=== PATIENT | female | born 1965 | race Two or more races ===

== ENCOUNTER 2023-03-11 17:50 | Emergency (ER) | payer SELFPAY ==
[2023-03-11 17:53] VITALS: BP 161/98; PULSE 84; RESP 20; TEMP 36.7; O2SAT 96; BMI 32.2
--- NOTE | 2023-03-11 18:02 | XR_ITS ---
The [address] [address] Patient Name: BETTY VILLAR MRN: [id number] date: 1965 Sex: F Assigned Patient Location: ER Current Patient Location: ER Accession/Order Number: [id number] Exam Date: 03/11/2023 18:12 Report Date: 03/11/2023 18:31 At the request of: JUAN CARLOS LEWIS Procedure: XR chest 1V EXAM: XR chest 1V HISTORY: cough COMPARISON: None. TECHNIQUE: Chest X-ray AP, 1 view FINDINGS: Support devices: None. Lungs/pleura: No consolidation, effusion, or pneumothorax. Heart and mediastinum: Normal contours. Bones: No acute abnormality identified. XR/XR chest 1V Impression: No radiographic evidence of acute cardiopulmonary process. Electronically authenticated by: CHAS MALIK Date: 03/11/2023 18:31
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
== END 2023-03-11 18:57 | disposition home or self-care (01) ==
PROVIDERS: Emergency Provider Emergency Medicine
DX: J32.9 Chronic sinusitis, unspecified (principal)
CPT/HCPCS: 71045; 99283

== ENCOUNTER 2024-02-19 10:30 | Emergency (ER) | payer BC, SELFPAY ==
[2024-02-19 10:41] VITALS: BP 157/99; PULSE 99; TEMP 36.8; O2SAT 98; BMI 32.2
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
--- OUTSIDE RECORDS SUMMARY | 2024-02-19 10:44 | XMS_ITS | CCD ---
Author Organization [facility] Care Team Providers Care Patient Relations Representative Name Role Phone ISRA LINDA Consulting Unavailable ALEXEIISRA Admitting Unavailable ALEXEIISRA Attending Unavailable REQUEST, NONE LISTED Primary Care Unavailable Allergies Allergy Classification Reported Allergen(s) Allergy Type Date of Onset Reaction(s) Facility (1 source) Acetaminophen / HYDROcodone Drug Allergy 12-03-2019 The [facility] Repository Problems Problem Classification Problem Date Documented Da te Episodic/Chronic Immunizations and screening for infectious disease (3 sources) Contact with and (suspected) exposure to other viral communicable diseases; Translations: [CONTCT EXPS OTH VIRL COMMUNICABL DZ] Onset: 12-03-2019 Episodic Unclassified (1 source) COVID-19; Translations: [COVID-19] Onset: 12-12-2019 Results Test Name Value Interpretation Reference Range Facil ity COVID-19 PCRon 12-08-2019 SARS-CoV-2, MERVAT Detected Abnormal Not Detected The [facility] Comment on above: Result Comment: This test was developed and its performance characteristics determined by [employer]. This test has not been FDA cleared or approved. This test has been authorized by FDA under an Emergency Use Authorization (EUA). This test is only authorized for the duration of time the declaration that circumstances exist justifying the authorization of the emergency use of in vitro diagnostic tests for detection of SARS-CoV-2 virus and/or diagnosis of COVID-19 infection under section 564(b)(1) of the Act, 21 U.S.C. 360bbb-3(b)(1), unless the authorization is terminated or revoked sooner. When diagnostic testing is negative, the possibility of a false negative result should be considered in the context of a patient's recent exposures and the presence of clinical signs and symptoms consistent with COVID-19. An individual without symptoms of COVID-19 and who is not shedding SARS-CoV-2 virus would expect to have a negative (not detected) result in this assay. Performed By: #### C VDPCR #### [facility] [address], [place] [address] Morris Strickland Encounters Encounter Date Encounter Type Care Provider Facility Start: 12-03-2019 End: 12-03-2019 Patient encounter procedure ISRA LINDA Facility:[facility]1 Payers Date Payer Category Payer Unknown [id number] 1960 Private Health Insurance [id number] Summary Purpose Family History No Family History Records Found Advance Directives No Advanced Directives Records Found Additional Source Comments INFORMATION SOURCE (unrecogn ized section and content) DATE CREATED AUTHOR 12/12/[address] [facility] FOR RECORDS PERTAINING TO PATIENTS WHO ARE OR HAVE BEEN ENROLLED IN A CHEMICAL DEPENDENCY/SUBSTANCEABUSE PROGRAM, SOME INFORMATION MAY BE OMITTED. This clinical summary was aggregated from multiple sources. Caution should be exercised in using it in the provision of clinical care. This summary normalizes information from multiple sources, and as a consequence, information in this document may materially change the coding, format and clinical context of patient data. In addition, data may be omitted in some cases. CLINICAL DECISIONS SHOULD BE BASED ON THE PRIMARY CLINICAL RECORDS. [employer] provides no warranty or guarantee of the accuracy or completeness of information in this document.
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
[2024-02-19 12:06] VITALS: BP 136/89; PULSE 78; O2SAT 99
== END 2024-02-19 12:06 | disposition home or self-care (01) ==
PROVIDERS: Emergency Provider Emergency Medicine
DX: S00.93XA Contusion of unspecified part of head, initial encounter (principal); Y04.2XXA Assault by strike against or bumped into by another person, initial encounter
CPT/HCPCS: 70450; 99284

== ENCOUNTER 2024-03-24 06:48 | Emergency (ER) | payer BC, SELFPAY ==
[2024-03-24] VITALS (10 sets, daily range): BP systolic 122–157; BP diastolic 58–86; PULSE 64–78; TEMP 36.7; O2SAT 92–97; BMI 34.0
--- OUTSIDE RECORDS SUMMARY | 2024-03-24 06:59 | XMS_ITS | CCD ---
Author Organization [facility] Care Team Providers Care Hearing Aid Consultant Name Role Phone ISRA LINDA Consulting Unavailable ALEXEIISRA Admitting Unavailable ALEXEIISRA Attending Unavailable REQUEST, NONE LISTED Primary Care Unavailable Allergies Allergy Classification Reported Allergen(s) Allergy Type Date of Onset Reaction(s) Facility (1 source) Acetaminophen / HYDROcodone Drug Allergy 12-03-2019 The [facility] Repository Problems Problem Classification Problem Date [...] SARS-CoV-2, MERVAT Detected Abnormal Not Detected The [facility] Comment on above: Result Comment: This test was developed and its performance characteristics determined by [employer]. This test has not been FDA cleared [...] assay. Performed By: #### C VDPCR #### [facility] [address] [place], [place] [address] Morris Strickland Encounters Encounter Date Encounter Type Care Provider Facility Start: 12-03-2019 End: 12-03-2019 Patient encounter procedure ISRA LINDA Facility:[facility]1 Payers Date Payer Category Payer Unknown [id number] 1960 Private Health Insurance [id number] Summary Purpose Family History No Family History Records Found Advance Directives No Advanced Directives Records Found Additional Source Comments INFORMATION SOURCE (unrecogn ized section and content) DATE CREATED AUTHOR 12/12/2019 The [facility] FOR RECORDS PERTAINING TO PATIENTS WHO ARE [...] BE BASED ON THE PRIMARY CLINICAL RECORDS. [employer] provides no warranty or guarantee of the accuracy or completeness of information in this document.
--- NOTE | 2024-03-24 07:31 | XR_ITS ---
[place] [id number] Patient Name: BETTY VALDES MRN: [id number] date: 1965 Sex: F Assigned Patient Location: ER Current Patient Location: ED.MAIN Accession/Order Number: [id number] Exam Date: 03/24/2024 07:45 Report Date: 03/24/2024 08:34 At the request of: NANCY DOUGLASS Procedure: XR chest 1V EXAMINATION: XR chest 1V HISTORY: cp COMPARISON: 03/11/2023 TECHNIQUE: AP portable FINDINGS: LUNGS: No significant pulmonary parenchymal abnormalities. VASCULATURE: No increased pulmonary vasculature. PLEURA: No pneumothorax, effusion, or pleural thickening. CARDIAC: No cardiomegaly or cardiac silhouette abnormality. MEDIASTINUM: No visible mass or adenopathy. BONES: No fracture or visible bone lesion. OTHER: Negative. XR/XR chest 1V IMPRESSION: No acute cardiopulmonary process Electronically authenticated by: WALTER JOHNSON Date: 03/24/2024 08:34
--- NOTE | 2024-03-24 07:31 | ECG_ITS ---
The [facility] Test Date: 2024-03-24 Pat Name: BETTY VALDES Department: Room: - Gender: Female Care Transitions Manager: : 1965 Requested By: [id number] Order Number: [id number] Reading MD: CAROL MOYER Measurements Intervals [place] Rate: 70 P: 54 FL: 166 QRS: 31 QRSD: 76 T: 17 QT: 366 QTc: 387 Interpretive Statements 1100 Sinus rhythm Non-Specific T wave inversion in III 9110 normal ECG No previous ECG available for comparison Electronically Signed On 03-25-2024 6:00:48 EST by CAROL MOYER
--- NOTE | 2024-03-24 07:36 | ED_ITS ---
HPI - Chest Pain General Chief Complaint: Chest Pain Stated Complaint: chest pain Time Seen by Provider: 03/24/24 07:21 Source: patient Mode of arrival: walk-in Limitations: no limitations History of Present Illness HPI narrative: Patient presents to ED complaining of chest pain on and off for the past 6 months. She also reports that she has had some dizziness episodes on and off lately. She said her grandmother had heart problems but no other family history. She has not had any stents or any cardiac issues in the past. 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 She said she gets short of breath every once in a while but nothing consistent. No diaphoresis no nausea vomiting. She does report occasional headaches. Vital signs stable, alert and oriented resting comfortably in the bed in no acute distress. Related Data Home Medications ?Medication ?Instructions ?Recorded ?Confirmed No Known Home Medications 02/19/24 03/24/24 Allergies Allergy/AdvReac Type Severity Reaction Status Date / Time No Known Drug Allergies Allergy Verified 03/11/23 17:56 Review of Systems ROS Status of ROS 10 or more systems reviewed and unremark able except as noted in history and below PFSH PFS Social History Smoking status: Never smoker Little interest or pleasure in doing things: not at all Feeling down, depressed, or hopeless: not at all Exam Narrative Exam Narrative: Time Seen: [] Vital Signs: [Per nurse's notes.] General: [Alert] Skin: [Warm, dry, no rash.] Head: [Normocephalic, atraumatic.] Neck: [Supple, trachea midline.] Eye: [Pupils are equal, round and reactive to light, extraocular movements are intact, normal conjunctiva.] Ears, nose, mouth and throat: oral mucosa moist. Cardiovascular: [Regular rate and rhythm, no murmur.] Respiratory: [Lungs are clear to auscultation, respirations are non-labored, breath sounds are equal.] Chest wall: [No tenderness, no deformity.] Gastrointestinal: [Soft, nontender, non distended, normal bowel sounds.] MSK: 5 out of 5 muscle strength x 4 extremities no calf pain or edema Lymphatics: [No lymphadenopathy.] Psychiatric: [Cooperative, appropriate mood & affect.] Neurological: [Alert and oriented to person, place, time, and situation, no focal neurological deficit observed.] Constitutional Vital Signs, click to edit/add: Last Vital Signs Temp 98.0 F 03/24/24 06:51 Pulse 68 03/24/24 08:30 Resp 23 H 03/24/24 08:30 BP 128/58 03/24/24 08:30 Pulse Ox 92 L 03/24/24 08:30 O2 Del Method Room Air 03/24/24 06:51 Course Vital Signs Vital signs: Vital Signs Temperature 98.0 F 03/24/24 06:51 Pulse Rate 78 03/24/24 06:51 Respiratory Rate 18 03/24/24 06:51 Blood Pressure 157/78 H 03/24/24 06:51 Pulse Oximetry 97 03/24/24 06:51 Oxygen Delivery Method Room Air 03/24/24 06:51 Temperature 98.0 F 03/24/24 06:51 Pulse Rate 68 03/24/24 08:30 Respiratory Rate 23 H 03/24/24 08:30 Blood Pressure 128/58 03/24/24 08:30 Pulse Oximetry 92 L 03/24/24 08:30 Oxygen Delivery Method Room Air 03/24/24 06:51 MDM - Chest Pain MDM Narrative Medical decision making narrative: labs are non acute. CXR normal. HgbA1c is normal. pt will need to establish a PCP in this area because she lives here more than she lives in [place]. She was given a list of PCPs. She was instructed to call and make an appt and should get a stress test outpt. Return to ED if worsening sxs. She is comfortable w care plan form home. Differential Diagnosis Differential diagnosis: Likely stable angina, unstable angina pectoris, atypical chest pain, st elevation myocardial infarction and chest pain Lab Data Attestation: I reviewed the patient's lab results. Labs: Lab Results 03/24/24 03/24/24 Range/Units 06:58 08:15 WBC 4.3 (4.0-11.0) 10^3/uL RBC 4.32 (4.20-5.40) 10^6/uL Hgb 13.7 (12.0-16.0) g/dL Hct 41.4 (36.0-48.0) % MCV 95.8 (81.0-99.0) fL MCH 31.7 (26.7-34.0) pg MCHC 33.1 (29.9-35.2) g/dL RDW 12.4 (11.0-15.0) % Plt Count 160 (150-450) 10^3/uL MPV 10.2 (9.5-13.5) fL Neut % (Auto) 38.5 L (43.0-75.0) % Lymph % (Auto) 44.6 (20.5-60.0) % [place] % (Auto) 12.5 H (1.7-12.0) % Eos % (Auto) 3.5 (0.9-7.0) % Baso % (Auto) 0.7 (0.2-2.0) % Neut # (Auto) 1.7 (1.4-6.5) 10^3/uL Lymph # (Auto) 1.9 (1.2-3.8) 10^3/uL [place] # (Auto) 0.5 (0.3-0.8) 10^3/uL Eos # (Auto) 0.2 (0.0-0.7) 10^3/uL Baso # (Auto) 0.0 (0.0-0.1) 10^3/uL Abs Immat Gran (auto) 0.01 (0.00-0.03) 10^3/uL Imm/Tot Granulo (auto) 0.2 (0.0-0.5) % Sodium 141 (136-145) mmol/L Potassium 4.1 (3.5-5.1) mmol/L Chloride 106 (98-107) mmol/L Carbon Dioxide 24.5 (21.0-32.0) mmol/L Anion Gap 14.6 BUN 11.0 (7.0-18.0) mg/dL Creatinine 0.94 (0.55-1.02) mg/dL Est GFR ( Amer) >60 (>=60 mL/min/1.73m^2) Est GFR (Non-Af Amer) >60 (>=60 mL/min/1.73m^2) BUN/Creatinine Ratio 11.7 Glucose 117 H (74-106) mg/dL Estimat Average Glucose 117 mg/dL Hemoglobin A1c 5.7 (4.5-6.2) % Calcium 8.7 (8.5-10.1) mg/dL Total Bilirubin 0.5 (0.2-1.0) mg/dL AST 23 (15-37) U/L ALT 28 (14-59) U/L Alkaline Phosphatase 97 (46-116) U/L Troponin I High Sens 10.0 (4.0-51.3) pg/mL Total Protein 7.5 (6.4-8.2) g/dL Albumin 3.7 (3.4-5.0) g/dL Globulin 3.8 g/dL Albumin/Globulin Ratio 1.0 Urine Color Lt. yellow (YELLOW) Urine Clarity Clear (CLEAR) Urine pH 6.0 (5.0-9.0) Ur Specific [place] 1.010 (1.005-1.025) Urine Protein Negative (NEG/TRACE) mg/dL Urine Glucose (UA) Negative (NEGATIVE) mg/dL Urine Ketones Negative (NEGATIVE) mg/dL Urine Occult Blood Negative (NEGATIVE) Urine Nitrite Negative (NEGATIVE) Urine Bilirubin Negative (NEGATIVE) Urine Urobilinogen 0.2 (0.2-1.0) EU/dL Ur Leukocyte Esterase Negative (NEGATIVE) Imaging Data Chest x-ray: Radiologist's impression: ITS Impressions Chest X-Ray 03/24/24 07:31 IMPRESSION: No acute cardiopulmonary process Electronically authenticated by: WALTER JOHNSON Date: 03/24/2024 08:34 ECG Data Attestation: I personally reviewed and interpreted this ECG as follows: Interpretation: EKG INTERPRETATION Time: [] 655 Rate: [] 70 Rhythm: _ [] Normal sinus rhythm ST segments: _ [] No acute ST elevation or depression T waves: _ [] Inverted T wave in lead III Ectopy: _ [] P wave/[place] interval: _ [] QRS interval: _ [] QT interval: _ [] Comparison: _ [] Comparison EKG date: [] Performed by: [self] Heart Score History: Slightly/Non-Suspicious ECG: Normal Age: >45-<65 years Risk Factors: 1 or 2 Risk Factors Troponin: <Normal Limit Total Heart Score Recommendations & Risks:: 2 Discharge Plan Discharge Chief Complaint: Chest Pain Clinical Impression: Atypical chest pain Patient Disposition: Home, Self-Care Time of Disposition Decision: 08:34 Condition: Good Mode of Transportation: Private Vehicle Prescriptions / Home Meds: No Action No Known Home Medications Print Language: [place] Instructions: Chest Pain (ED) Referrals: Physician,Non-Staff, MD [Primary Care Provider] - 1 week Discharge Date/Time: 03/24/24 08:47
[2024-03-24 07:43] LABS: Basophils Percent Auto 0.7 % (0.2-2.0); Eosinophils Absolute Auto 0.2 10^3/uL (0.0-0.7); Eosinophils Percent Auto 3.5 % (0.9-7.0); Hematocrit 41.4 % (36.0-48.0); Hemoglobin 13.7 g/dL (12.0-16.0); Immature Granulocytes Abs Auto 0.01 10^3/uL (0.00-0.03); Immature Granulocytes Pct Auto 0.2 % (0.0-0.5); Lymphocytes Absolute Auto 1.9 10^3/uL (1.2-3.8); Lymphocytes Percent Auto 44.6 % (20.5-60.0); Mean Corpuscular HGB Conc 33.1 g/dL (29.9-35.2); Mean Corpuscular Hemoglobin 31.7 pg (26.7-34.0); Mean Corpuscular Volume 95.8 fL (81.0-99.0); Mean Platelet Volume 10.2 fL (9.5-13.5); Monocytes Absolute Auto 0.5 10^3/uL (0.3-0.8); Monocytes Percent Auto 12.5 % (1.7-12.0); Neutrophils Absolute Auto 1.7 10^3/uL (1.4-6.5); Neutrophils Percent Auto 38.5 % (43.0-75.0); Platelet Count 160 10^3/uL (150-450); Red Blood Count 4.32 10^6/uL (4.20-5.40); Red Cell Distribution Width 12.4 % (11.0-15.0); White Blood Count 4.3 10^3/uL (4.0-11.0)
[2024-03-24 07:59] LABS: Estimated Average Glucose 117 mg/dL; Glycohemoglobin A1C 5.7 % (4.5-6.2)
[2024-03-24 08:01] LABS: Alanine Aminotransferase 28 U/L (14-59); Albumin Level 3.7 g/dL (3.4-5.0); Alkaline Phosphatase 97 U/L (46-116); Anion Gap 14.6; Aspartate Amino Transferase 23 U/L (15-37); BUN Creatinine Ratio 11.7; Bilirubin Total 0.5 mg/dL (0.2-1.0); Calcium 8.7 mg/dL (8.5-10.1); Carbon Dioxide 24.5 mmol/L (21.0-32.0); Chloride 106 mmol/L (98-107); Estimated GFR (African America >60 (>=60 mL/min/1.73m^2); Estimated GFR (Non-African Ame >60 (>=60 mL/min/1.73m^2); Globulin 3.8 g/dL; Glucose 117 mg/dL (74-106); Potassium 4.1 mmol/L (3.5-5.1); Sodium 141 mmol/L (136-145); Total Protein 7.5 g/dL (6.4-8.2)
[2024-03-24 08:26] LABS: Bilirubin Urine NEGATIVE (NEGATIVE); Blood Urine NEGATIVE (NEGATIVE); Clarity Urine CLEAR (CLEAR); Color Urine LT. YELLOW (YELLOW); Glucose Urine UA NEGATIVE (NEGATIVE); Ketones Urine NEGATIVE (NEGATIVE); Leukocyte Esterase Urine NEGATIVE (NEGATIVE); Nitrite Urine NEGATIVE (NEGATIVE); Protein Urine NEGATIVE (NEG/TRACE); Urine Microscopic Indicated NO; Urobilinogen Urine 0.2 EU/dL (0.2-1.0)
== END 2024-03-24 08:47 | disposition home or self-care (01) ==
PROVIDERS: Emergency Provider Emergency Medicine
DX: R07.89 Other chest pain (principal)
CPT/HCPCS: 36415; 71045; 80053; 81003; 83036; 84484; 85025; 93005; 99285

== ENCOUNTER 2024-05-04 07:39 | Outpatient (OUT) | payer BC, SELFPAY ==
[2024-05-04 07:06] LABS: Basophils Percent Auto 0.4 % (0.2-2.0); Eosinophils Absolute Auto 0.2 10^3/uL (0.0-0.7); Eosinophils Percent Auto 3.8 % (0.9-7.0); Hematocrit 40.4 % (36.0-48.0); Hemoglobin 13.5 g/dL (12.0-16.0); Immature Granulocytes Abs Auto 0.02 10^3/uL (0.00-0.03); Immature Granulocytes Pct Auto 0.4 % (0.0-0.5); Lymphocytes Absolute Auto 2.2 10^3/uL (1.2-3.8); Lymphocytes Percent Auto 44.4 % (20.5-60.0); Mean Corpuscular HGB Conc 33.4 g/dL (29.9-35.2); Mean Corpuscular Hemoglobin 31.8 pg (26.7-34.0); Mean Corpuscular Volume 95.1 fL (81.0-99.0); Mean Platelet Volume 9.9 fL (9.5-13.5); Monocytes Absolute Auto 0.6 10^3/uL (0.3-0.8); Monocytes Percent Auto 11.5 % (1.7-12.0); Neutrophils Percent Auto 39.5 % (43.0-75.0); Platelet Count 170 10^3/uL (150-450); Red Blood Count 4.25 10^6/uL (4.20-5.40); Red Cell Distribution Width 12.3 % (11.0-15.0); White Blood Count 5.1 10^3/uL (4.0-11.0)
[2024-05-04 07:14] LABS: Estimated Average Glucose 117 mg/dL; Glycohemoglobin A1C 5.7 % (4.5-6.2)
[2024-05-04 07:31] LABS: Alanine Aminotransferase 24 U/L (14-59); Albumin Globulin Ratio 0.9; Albumin Level 3.4 g/dL (3.4-5.0); Alkaline Phosphatase 95 U/L (46-116); Anion Gap 10.8; Aspartate Amino Transferase 20 U/L (15-37); BUN Creatinine Ratio 18.3; Bilirubin Total 0.5 mg/dL (0.2-1.0); Calcium 8.9 mg/dL (8.5-10.1); Carbon Dioxide 29.6 mmol/L (21.0-32.0); Chloride 104 mmol/L (98-107); Chol HDL Ratio 3.5; Cholesterol 185 mg/dL (<=200); Estimated GFR (African America >60 (>=60 mL/min/1.73m^2); Estimated GFR (Non-African Ame >60 (>=60 mL/min/1.73m^2); Globulin 3.9 g/dL; Glucose 109 mg/dL (74-106); HDL Cholesterol 53 mg/dL (40-60); LDL Cholesterol Calculated 102.6 mg/dL; Potassium 4.4 mmol/L (3.5-5.1); Sodium 140 mmol/L (136-145); TSH W/ REFLEX FT4 4.572 uIU/mL (0.358-3.740); Total Protein 7.3 g/dL (6.4-8.2); Triglycerides 147 mg/dL (<=150); VLDL CHOLESTEROL 29.4 mg/dL
[2024-05-04 12:47] LABS: Free T4 1.06 ng/dL (0.76-1.46)
[2024-05-05 08:11] LABS: Vitamin B12 435 pg/mL (232-1245)
--- OUTSIDE RECORDS SUMMARY | 2024-05-06 07:42 | XMS_ITS | CCD ---
Author Organization [facility] Care Team Providers Care Fare Register Repairer Name Role Phone ISRA LINDA Consulting Unavailable ALEXEIISRA Admitting Unavailable ALEXEIISRA Attending Unavailable REQUEST, NONE LISTED Primary Care Unavailable Allergies Allergy Classification Reported Allergen(s) Allergy Type Date of Onset Reaction(s) Facility (1 source) Acetaminophen / HYDROcodone Drug Allergy 12-03-2019 [facility] Repository Problems Problem Classification Problem Date [...] SARS-CoV-2, MERVAT Detected Abnormal Not Detected [facility] Comment on above: Result Comment: This test was developed and its performance characteristics determined by [employer]. This test has not been FDA cleared [...] assay. Performed By: #### C VDPCR #### [facility] [address], [place] [address] Morris Strickland Encounters Encounter Date Encounter Type Care Provider Facility Start: 12-03-2019 End: 12-03-2019 Patient encounter procedure ISRA LINDA Facility:[facility] Payers Date Payer Category Payer Unknown [id number] 1960 Private Health Insurance [id number] Summary Purpose Family History No Family History Records Found Advance Directives No Advanced Directives Records Found Additional Source Comments INFORMATION SOURCE (unrecogn ized section and content) DATE CREATED AUTHOR 12/12/2019 [facility] FOR RECORDS PERTAINING TO PATIENTS WHO ARE [...] BE BASED ON THE PRIMARY CLINICAL RECORDS. [employer] provides no warranty or guarantee of the accuracy or completeness of information in this document.
== END 2024-05-04 07:40 | disposition home or self-care (01) ==
LOC: LAB 05-06 07:39
PROVIDERS: PCP Nurse Practitioner Family; Visit Provider Nurse Practitioner Family
DX: R73.01 Impaired fasting glucose (principal); R63.5 Abnormal weight gain; E55.9 Vitamin D deficiency, unspecified; E53.8 Deficiency of other specified B group vitamins
CPT/HCPCS: 36415; 80053; 80061; 82306; 82607; 83036; 84439; 84443; 85025

== ENCOUNTER 2024-09-04 12:37 | Emergency (ER) | payer BC, SELFPAY ==
[2024-09-04 12:43] VITALS: BP 166/93; PULSE 107; TEMP 36.7; O2SAT 98; BMI 27.5
--- OUTSIDE RECORDS SUMMARY | 2024-09-04 12:44 | XMS_ITS | CCD ---
Author Organization [facility] Care Team Providers Care Neck Pinner Name Role Phone ISRA LINDA Consulting Unavailable ISRA LINDA Admitting Unavailable ISRA LINDA Attending Unavailable REQUEST, NONE LISTED Primary Care Unavailable Monet Dudley APRN Primary Care Provider Monet Dudley APRN Attending Provider Monet Dudley Attending Unavailable Monet Dudley Primary Care Unavailable Monet Dudley Admitting Unavailable Monet Dudley NP Unavailable David Castelan MD Primary Care Provider NIA CASAS Attending Unavailable DEANA BULLARD Attending Unavailable Allergies Allergy Classification Reported Allergen(s) Allergy Type Date of Onset Reaction(s) Facility (1 source) Acetaminophen / HYDROcodone Drug Allergy 12-03-2019 [facility] Medications Current Medications Medication Drug Class(es) Dates Sig (Normalized) Sig (Original) [id number] 200 actuat albuterol 0.09 mg/actuat metered dose inhaler (3 sources) beta2-Adrenergic Agonist Start: 12-06-2023 take 1 puff(s) by mouth every four hours as needed albuterol HFA 90 mcg/act inhaler INHALE 1 PUFF BY MOUTH EVERY 4 HOURS NEEDED 12/06/2023 Active celecoxib 50 mg oral capsule (2 sources) Nonsteroidal Anti-inflammatory Drug take 1 capsule by mouth in the morning celecoxib (CeleBREX) 50 MG capsule Take 50 mg by mouth in the morning and 50 mg before bedtime. Active fluticasone propionate 0.05 mg/actuat metered dose nasal spray (4 sources) Corticosteroid Start: 05-06-2024 fluticasone (Flonase) 50 MCG/ACT nasal spray 05/06/2024 Active Start: 05-06-2024 take 1 spray(s) nasa l route twice daily Fluticasone Propionate (Flonase Allergy Relief) 50 mcg/actuation spray,suspension Active 1 SPRAY INTRANASAL Twice daily May 06, 2024 12:00am administer into each nostril magnesium gluconate 550 mg oral tablet (2 sources) take 1 tablet by mouth in the morning magnesium 30 MG tablet Take 30 mg by mouth in the morning and 30 mg before bedtime. Active vitamin b12 0.1 mg oral tablet (2 sources) Vitamin B12 take 1 tablet by mouth once daily cyanocobalamin (Vitamin B-12) 100 MCG tablet Take 100 mcg by mouth Daily Active zinc gluconate 77 mg oral lozenge (2 sources) Zinc 10 MG lozen ge Dissolve in the mouth Active Completed/Discontinued Medications Medication Drug Class(es) Dates Sig (Normalized) Sig (Original) cephalexin 500 mg oral capsule (1 source) Cephalosporin Antibacterial Start: 04-13-2024 End: 04-25-2024 take 1 capsule by mouth three times daily Cephalexin 500 mg capsule Discontinued 500 MG PO Three times daily 16 03April 13, 2024 12:00am April 25, 2024 3:04pm Problems Problem Classification Problem Date Documented Date Episodic/Chronic Diabetes mellitus without complication (2 sources) Impaired fasting glycemia; Translations: [Impaired fasting glucose] 04-25-2024 Episodic Immunizations and screening for infectious disease (3 sources) Contact with and (suspected) exposure to other viral communicable diseases; Translations: [CONTCT EXPS OTH VIRL COMMUNICABL DZ] Onset: 12-03-2019 Episodic Nonmalignant breast conditions (5 sources) Inflammatory disorder of breast; Translations: [Mastitis without abscess] Onset: 05-25-2024 04-13-2024 Episodic Nutritional deficiencies (2 sources) Vitamin D deficiency; Translations: [Vitamin D deficiency, unspecified] 04-25-2024 Chronic Nutritional deficiencies (2 sources) Cobalamin deficiency; Translations: [Deficiency of other specified B group vitamins] 04-25-2024 Episodic Other and unspecified benign neoplasm (1 source) Melanocytic nevus; Translations: [Melanocytic nevi, unspecified] 04-25-2024 Episodic Other and unspecified benign neoplasm (1 source) Melanocytic nevi, unspecified; Translations: [Benign neoplasm of skin, site unspecified] 04-25-2024 Episodic Other circulatory disease (1 source) Facial sinus finding; Translations: [Other specified symptoms and signs involving the circulatory and respiratory systems] 04-25-2024 Episodic Other circulatory disease (1 source) Other specified symptoms and signs involving the circulatory and respiratory systems; Translations: [Other symptoms involving respiratory system and chest] 04-25-2024 Episodic Other ear and sense organ disorders (1 source) Hearing loss; Translations: [Unspecified hearing loss, unspecified ear] 04-25-2024 Chronic Other ear and sense organ disorders (1 source) Unspecified hearing loss, unspecified ear; Translations: [Unspecified hearing loss] 04-25-2024 Chronic Other ear and sense organ disorders (1 source) Mixed conductive AND sensorineural hearing loss; Translations: [Mixed conductive and sensorineural hearing loss, unilateral, left ear with restricted hearing on the contralateral side] 08-17-2024 Chronic Other ear and sense organ disorders (2 sources) Asymmetrical sensorineural hearing loss; Translations: [Sensorineural hearing loss, bilateral] 08-23-2024 Chronic Other nutritional; endocrine; and metabolic disorders (1 source) Weight increased; Translations: [Abnormal weight gain] 04-25-2024 Episodic Other nutritional; endocrine; and metabolic disorders (1 source) Abnormal weight gain; Translations: [Abnormal weight gain] 04-25-2024 Episodic Otitis media and related conditions (5 sources) Dysfunction of eustachian tube; Translations: [Unspecified Eustachian tube disorder, unspecified ear] 04-25-2024 Episodic Unclassified (1 source) COVID-19; Translations: [COVID-19] Onset: 12-12-2019 Results Test Name Value Interpretation Reference Range [facility] Auditory function testson Right Ear: Mild to severe sensorineural hearing loss above 1K Hz. Left Ear: Mild to severe mixed, predominately sensorineural hearing loss above 250 Hz Hz. 15 dB air bone gap at 4K hz only [facility] M[facility] reportOrdered By : Robbin Forde on 05-25-2024 Diagnostic imaging study [place] [address] Mammography Report Signed Patient: Gunter-KatjaCharis varela MR #: [id number] : 1965 Acct:[id number] Age/Sex: 59 / F ADM Date: 5 Loc: [place] Room: Type: [facility] Attending Dr: KATHLEEN Echeverria APRN Copies to: Monet Dudley APRN, CNP~ Ordering Provider: Monet Dudley APRN, CNP Date of Service: 05/25/24 US/US breast LT limited: N63.0 - Unspecified lump in unspecified breast ([id number]) MM/MM diagnostic mammo LT w/CAD: N63.0 - Unspecified lump in unspecified breast DIAGNOSTIC LEFT BREAST MAMMOGRAM - FULL FIELD DIGITAL WITH TOMOSYNTHESIS CLINICAL DATA: Left breast pain Craniocaudal and mediolateral oblique views of the left breast were obtained using low-dose digital technique. This examination was reviewed with the aid of CAD. There are scattered fibroglandular tissue. Benign-appearing lymph nodes are noted along the left chest wall. There are a few scattered benign-appearing calcifications. There are no dominant masses, typically malignant calcifications or architectural distortion. Limited left breast ultrasound: There is scattered fiber glandular tissue in the region of tenderness within theright breast. There is no evidence of mass, architectural distortion, prominenceducts, or atypical calcification. Multiple reniform peripherally hypoechoic and centrally echogenic presumed intramammary lymph nodes are noted with the largestat the 1 to 2:00 position 7 to 8 cm from the nipple measuring 6 x 3 x 4 mm in greatest dimension. MM/MM diagnostic mammo LT w/CAD IMPRESSION: NO MAMMOGRAPHIC OR SONOGRAPHIC EVIDENCE OF MALIGNANCY. ROUTINE FOLLOW-UP IS RECOMMENDED IN ONE YEAR. RESULT CODE: 2 Benign Findings(s) DENSITY CODE: 2 (approximately 25-50% glandular) FOLLOW UP: 1YR The false-negative rate of mammography is approximately 10-percent. Management of a palpable abnormality must be based on clinical grounds. Impression dictated by: Robbin Forde M.D.05/25/2024 2:35 PM Dictation Location: [facility] Transcribed By: CHRISTOFER 05/25/24 1435 Dictated By: Robbin Forde II, MD 05/25/24 1357 Signed By: 05/25/24 1430 [facility] Work Phone: US breast LT limitedon 05-25 US breast LT limited [facility] [place] [address] [place], [place] [id number] Mammography Report Signed with Jed Patient: Charis Chester MR#: [id number] : 1965 Acct:[id number] Age/Sex: 59 / F ADM Date: 05/25/24 Loc: [place] Room: Type: [facility] Attending Dr: Monet Dudley APRN, AIRCRAFT ASSEMBLER-C Copies to: Monet Dudley APRN, CNP Ordering Provider: Monet Dudley APRN, CNP Date of Service: 05/25/24 US/US breast LT limited: N63.0 - Unspecified lump in unspecified breast ([id number]) MM/MM diagnostic mammo LT w/CAD: N63.0 - Unspecified lump in unspecified breast ADDENDUM 1 Comparison: 12/08/2023, 07/01/2012, 10/24/2011, and 02/16/2009 Impression dictated by: Robbin Forde M.D.06/20/2024 2:39 PM Dictation Location: [facility] Addendum Dictated By: Robbin Forde II, MD Addendum Signed By: 06/20/24 143 Addendum Cosigned By: DD/ /09/1437 TD/TT: 06/20/2408/09/1438 DIAGNOSTIC LEFT BREAST MAMMOGRAM - FULL FIELD DIGITAL WITH TOMOSYNTHESIS CLINICAL DATA: Left breast pain Craniocaudal and mediolateral oblique views of the left breast were obtained using low-dose digital technique. This examination was reviewed with the aid of CAD. There are scattered fibroglandular tissue. Benign-appearing lymph nodes are noted along the left chest wall. There are a few scattered benign-appearing calcifications. There are no dominant masses, typically malignant calcifications or architectural distortion. Limited left breast ultrasound: There is scattered fiber glandular tissue in the region of tenderness within the right breast. There is no evidence of mass, architectural distortion, prominence ducts, or atypical calcification. Multiple reniform peripherally hypoechoic and centrally echogenic presumed intramammary lymph nodes are noted with the largest at the 1 to 2:00 position 7 to 8 cm from the nipple measuring 6 x 3 x 4 mm in greatest dimension. MM/MM diagnostic mammo LT w/CAD IMPRESSION: NO MAMMOGRAPHIC OR SONOGRAPHIC EVIDENCE OF MALIGNANCY. ROUTINE FOLLOW-UP IS RECOMMENDED IN ONE YEAR. RESULT CODE: 2 Benign Findings(s) DENSITY CODE: 2 (approximately 25-50% glandular) FOLLOW UP: 1YR The false-negative rate of mammography is approximately 10-percent. Management of a palpable abnormality must be based on clinical grounds. Impression dictated by: Robbin Forde M.D.05/25/2024 2:35 PM Dictation Location: [facility] Transcribed By: CHRISTOFER 05/25/24 1435 Dictated By: Robbin Forde II, MD 05/25/24 1357 Signed By: 05/25/24 1435 Normal [facility] COVID-19 PCRon 12-08-2019 SARS-CoV-2, MERVAT Detected Abnormal Not Detected [facility] Comment on above: Result Comment: This test was developed and its performance characteristics determined by [facility]. This test has not been FDA cleared [...] assay. Performed By: #### C VDPCR #### [facility] [address] [place] [address] Morris Strickland Vital Signs Date Time Vital Sign Value Performing Clinician Facility 08-23-2024 14:47-0400 Body height 152.4 cm Deana Bullard MD Work Phone: [facility] 08-23-2024 14:47-0400 Body mass index (BMI) [Ratio] 34.18 kg/m2 Deana Bullard MD Work Phone: [facility] 08-23-2024 14:47-0400 Body weight 79.38 kg Deana Bullard MD Work Phone: [facility] 08-23-2024 14:47-0400 Diastolic blood pressure 79 mm[Hg] Deana Bullard MD Work Phone: [facility] 08-23-2024 14:47-0400 Heart rate 93 /min Deana Bullard MD Work Phone: [facility] 08-23-2024 14:47-0400 Systolic blood pressure 127 mm[Hg] Deana Bullard MD Work Phone: [facility] 04-25-2024 15:11-0500 Body height 152.4 cm Monet Dudley APRN Work Phone: [facility] 04-25-2024 15:11-0500 Body mass index (BMI) [Ratio] 34.2 kg/m2 Monet Dudley APRN Work Phone: [facility] 04-25-2024 15:11-0500 Body weight 79.37 kg Monet Dudley APRN Work Phone: [facility] 04-25-2024 15:11-0500 Diastolic blood pressure 84 mm[Hg] Monet Dudley APRN Work Phone: [facility] 04-25-2024 15:11-0500 Heart rate 77 /min Monet Dudley APRN Work Phone: [facility] 04-25-2024 15:11-0500 SaO2% (BldA) [Mass fraction] 97 % Monet Burgosrachele [employer] ASSEMBLER Work Phone: [facility] 04-25-2024 15:11-0500 Systolic blood pressure 128 mm[Hg] Monet Burgosrachele [employer]BLER Work Phone: [facility] 04-13-2024 14:29-0500 Body height 152.4 cm Monet Burgosnicoletimomichelle [employer]SEMBLER Work Phone: [facility] 04-13-2024 14:29-0500 Body mass index (BMI) [Ratio] 35.3 kg/m2 Monet Burgosrachele [employer]BLER Work Phone: [facility] 04-13-2024 14:29-0500 Body temperature 98.6 [degF] Monet Burgosrachele [employer]SEMBLER Work Phone: [facility] 04-13-2024 14:29-0500 Body weight 82.1 kg Monet Burgosrachele [employer]SEMBLER Work Phone: [facility] 04-13-2024 14:29-0500 Diastolic blood pressure 73 mm[Hg] Monet Burgosrachele [employer]SEMBLER Work Phone: [facility] 04-13-2024 14:29-0500 Heart rate 86 /min Monet Burgosrachele [employer]ER Work Phone: [facility] 04-13-2024 14:29-0500 Respiratory rate 18 /min Monet Burgosrachele [employer]BLER Work Phone: [facility] 04-13-2024 14:29-0500 SaO2% (BldA) [Mass fraction] 96 % Monet Octavia [employer]SEMBLER Work Phone: [facility] 04-13-2024 14:29-0500 Systolic blood pressure 118 mm[Hg] Monet Octavia TAPIAN Work Phone: [facility] Encounters Encounter Date Encounter Type Care Provider Facility Start: 08-23-2024 End: 08-23-2024 Office outpatient new 45 minutes Deana Bullard MD Work Phone: [facility] Comment on above: ETD (Eustachian tube dysfunction), bilateral (Primary Dx); Asymmetric SNHL (sensorineural hearing loss) Start: 08-23-2024 End: 08-23-2024 ambulatory DEANA BULLARD Not Available Start: 08-23-2024 End: 08-23-2024 Bamboo flowsheet Deana Bullard MD Work Phone: [facility] Start: 08-23-2024 End: 08-23-2024 Bamboo flowsheet Deana Bullard MD Work Phone: [facility] Start: 08-17-2024 End: 08-17-2024 Clinical Support Nia Casas CCC-A Work Phone: [facility] Comment on above: Mixed conductive and sensorineural hearing loss of left ear with restricted hearing of right ear (Primary Dx); Dysfunction of left eustachian tube Start: 08-17-2024 End: 08-17-2024 Bamboo flowsheet Nia Pearl Yessenia CCC-A Work Phone: [facility] Start: 08-17-2024 End: 08-17-2024 Bamboo flowsheet Nia Casas CCC-A Work Phone: [facility] Start: 05-25-2024 End: 05-25-2024 Patient encounter procedure Monet Dudley APRN Work Phone: [facility] Work Phone: Start: 05-25-2024 End: 05-25-2024 ambulatory Monet Dudley APRN Work Phone: [facility] Work Phone: Start: 04-25-2024 End: 04-25-2024 Patient encounter procedure Monet Dudley APRN Work Phone: [facility] Work Phone: Start: 04-13-2024 End: 04-13-2024 Patient encounter procedure Monet Dudley APRN Work Phone: [facility] [place] Work Phone: Start: 12-03-2019 End: 12-03-2019 Patient encounter procedure ISRA LINDA Facility:H1 Procedures Date Procedure Procedure Detail Performing Clinician Start: 08-17-2024 AUDITORY FUNCTION TESTS Nia Casas CCC-A Work Phone: Start: 05-25-2024 Mammography of left breast Monet Dudley TOÑO Work Phone: Start: 05-25-2024 Ultrasonography of l eft breast Monet Dudley TOÑO Work Phone: Start: 12-08-2023 Mammography Nia Raphael CCC-A Work Phone: Plan of Treatment Date Care Activity Detail Author Start: 12-19-2026 Screening for malign ant neoplasm of colon [facility] Start: 01-16-2025 Influenza vaccination Influenz a Vaccine (Season Ended) [facility] Start: 12-07-2024 Screening for malign ant neoplasm of breast Mammogram [facility] Start: 09-13-2024 End: 09-13-2024 Patient encounter procedure 09/13/2024 3:30 PM EDT Office Visit [facility] [address] [place] [id number] Deana Bullard MD [address] [place] [address] [facility] Start: 08-23-2024 End: 08-23-2024 Patient encounter procedure [facility] Comment on above: Arrived Start: 08-17-2024 End: 08-17-2024 Clinical Support 08/17/2024 3:00 PM EDT Clinical Support [facility] [address] [place] [id number] Nia Casas, CCC-A [address] [place] [address] Arrived [facility] Comment on above: Arrived Start: 04-25-2024 Patient referral [facility] Work Phone: Start: 2004 Screening for malign ant neoplasm of breast Mammogram [facility] Start: 1994 Screening for malign ant neoplasm of cervix [facility] Start: 1985 Screening for malign ant neoplasm of cervix Pap Smear [facility] Start: 1965 Screening for malign ant neoplasm of colon [facility] Comprehensive metabo lic 2000 panel - Serum or Plasma [facility] CT Sinuses WO contrast [facility] Patient referral [facility] Work Phone: [facility] Payers Date Payer Category Payer Self-pay 2023 [facility] [id number] 2023 Unknown [id number] 1965 Unknown [id number] 1965 Unknown [id number] 1965 Unknown [id number] 1960 Private Health Insurance [id number] Unknown [id number] Social History Date Type Detail Facility Start: 04-13-2024 End: 08-23-2024 Tobacco smoking status NHIS Never smoked tobacco (finding) [facility] Start: 05-26-2024 Sex Female (finding) [facility] Start: 1965 Sex Assigned At Female F [facility] consumption unknown [facility] Start: 1965 Sex assigned at Not on file [facility] Start: 08-23-2024 Gender identity Not on file [facility] Start: 08-23-2024 Tobacco use and exposure Smokeless tobacco non-user [facility] Start: 08-23-2024 Alcoholic beverage intake Current drinker of alcohol (finding) [facility] Start: 08-23-2024 History of Social function [facility] Start: 08-23-2024 Alcohol Comment socal [facility] History of Present illness Narrative 08-23-2024 Deana Bullard MD - 08/23/2024 3:00 PM EDT Note Date & Type Note Facility 08-23-2024 History of Presen t illness Narrative Subjective Patient ID: Charis Chester is a 59 y.o. female who presents for Mastitis (Audio 08/17/24) Pt reports she has has ear pressure and popping for over a year. Pt states she has seen 2 other ENTs for the same problem. Does not use flonase daily. No otolaryngology records in computer. Audio shows mild to severe marshall L>>R SNHL. Marshall tymps normal. Review of Systems All other systems reviewed and are negative. Family History Problem Relation Name Age of Onset Hypertension Mother Diabetes Mother Diabetes Father Active Ambulatory Problems Diagnosis Date Noted No Active Ambulatory Problems Resolved Ambulatory Problems Diagnosis Date Noted No Resolved Ambulatory Problems Past Medical History: Diagnosis Date Ear problems Past Surgical History: Procedure Laterality Date CHOLECYSTECTOMY No Known Allergies Current Outpatient Medications on File Prior to Visit Medication Sig Dispense Refill albuterol HFA 90 mcg/act inhaler INHALE 1 PUFF BY MOUTH EVERY 4 HOURS NEEDED celecoxib (CeleBREX) 50 MG capsule Take 50 mg by mouth in the morning and 50 mg before bedtime. cyanocobalamin (Vitamin B-12) 100 MCG tablet Take 100 mcg by mouth Daily fluticasone (Flonase) 50 MCG/ACT nasal spray magnesium 30 MG tablet Take 30 mg by mouth in the morning and 30 mg before bedtime. Zinc 10 MG lozenge Dissolve in the mouth No current facility-administered medications on file prior to visit. Objective Last Recorded Vitals Vitals: 08/23/24 1447 BP: 127/79 Pulse: 93 ENT Physical Exam Constitutional Appearance: patient appears well-developed, well-nourished and well-groomed, Head and Face Appearance: head appears normal and face appears atraumatic; Ear Ear Canals: right ear canal normal; left ear canal normal; Tympanic Membranes: right tympanic membrane normal; left tympanic membrane normal; Nose External Nose: nares patent bilaterally; external nose normal; Internal Nose: septum normal; Oral Cavity/Oropharynx Tongue: normal; Oral mucosa: normal; Hard palate: normal; Soft palate: normal; Tonsils: normal; Neck Neck: neck normal; neck palpation normal; Thyroid: thyroid normal; Respiratory Inspection: breathing unlabored; normal breathing rate; Auscultation: breath sounds are clear; Cardiovascular Inspection: extremities are warm and well perfused; no peripheral edema present; Auscultation: regular rate and rhythm; Assessment/Plan Diagnoses and all orders for this visit: ETD (Eustachian tube dysfunction), bilateral Asymmetric SNHL (sensorineural hearing loss) Pt needs an MRI IAC as the sig asymmetry noted on audio and the progression noted from 11/2023 could be due to an AN. Recommend AVINA, but pt states she tried them in the past with little benefit. Though tymps are normal in the audio, marshall ME do show some ETD changes. If ME or mastoid inflammation evident on MRI, pt may benefit from tubes. documented in this encounter [facility] History of Present illness Narrative 08-17-2024 Niamike Casas CCC-A - 08/17/2024 3:00 PM EDT Note Date & Type Note Facility 08-17-2024 History of Presen t illness Narrative History: Pt was referred to ENT because of hearing loss. Pt indicates she hears better in her right ear. Hearing loss has been gradual in the past few years. Pt occasionally has pressure in her ears. She denies tinnitus and exposure to noise. Otoscopic Exam: Ear canal clear and TM intactAU Pure Tone Audiometry Right Ear: Mild to severe sensorineural hearing loss above 1K Hz. Left Ear: Mild to severe mixed, predominately sensorineural hearing loss above 250 Hz Hz. 15 dB air bone gap at 4K hz only Speech Audiometry Right SRT = 25 dB and word discrimination score at 65 dBHL (masked) = 100% Left SRT = 35 dB and word discrimination score at 65 dBHL (masked) = 100% Tympanometry Right Ear: Type A tympanogram Left Ear: Type C tympanogram documented in this encounter [facility] Evaluation note 04-13-2024 Note Date & Type Note Facility 04-13-2024 Evaluation note Diagnosis Onset Date Resolution Breast inflammation acute Novem 2023 2:21pm Atypical mole acute April 2:59pm B12 deficiency acute April 252023 2:59pm Breast lump acute April 25, 2024 2:59pm Chronic sinus complaints acute April 25 2:59pm Eustachian tube dysfunction acute April 25 2:59pm Hearing loss acute April 2:59pm Impaired fasting glucose acute April 25 2:59pm Vitamin D deficiency acute Dece mb2023 2:59pm Weight gain acute April 25, 2024 2:59pm [facility] Work Phone: Evaluation note Note Date & Type Note Facility Evaluation note Diagnosis Mixed conductive and sensorineural hearing loss of left ear with restricted hearing of right ear- Primary Dysfunction of left eustachian tube documented in this encounter [facility] Evaluation note Note Date & Type Note Facility Evaluation note Diagnosis ETD (Eustachian tube dysfunction), bilateral- Primary Asymmetric SNHL (sensorineural hearing loss) Sensorineural hearing loss, asymmetrical documented in this encounter [facility] Summary Purpose Family History No Family History Records Found Relationship Condition Age at Onset Recorded Date/T urvashi father Diabetes mellitus Unknown Advance Directives No Advanced Directives Records Found Advance Directive Response Recorded Date/ Time Advance Directives No March 2:19pm Chief Complaint and Reason for Visit Chief Complaint Admit Date Rash April 13, 2024 2:21pm Urgent care f/u, mastitis April 25, 2024 2:59pm N63.0 May 25, 2024 1: 22pm Reason for Visit Admit Date Breast inflammation April 13, 2024 2:21pm Atypical mole April 25, 2024 2 :59pm B12 deficiency April 25, 2024 2 :59pm Breast lump April 25, 2024 2 :59pm Chronic sinus complaints April 25, 2 024 2:59pm Eustachian tube dysfunction April 2:59pm Hearing loss April 25, 2024 2 :59pm Impaired fasting glucose April 25, 2 024 2:59pm Vitamin D deficiency April 25, 2024 2:59pm Weight gain April 25, 2024 2 :59pm Additional Source Comments INFORMATION SOURCE (unrecogn ized section and content) DATE CREATED AUTHOR 12/12/2019 [facility] DATE CREATED AUTHOR AUTHOR'S ORGANIZ ATION 06/21/2024 [facility] DATE CREATED AUTHOR AUTHOR'S ORGANIZ ATION 08/25/2024 [facility] Care Teams (unrecognized sec tion and content) Team Status: Active Member Role Status Dates Monet Dudley APRN [employer]-C Primary Care Provider Active Team Status: Inactive Member Role Status Dates Yue Sanabria APRN Attending Provider Active Start: April 13, 2024 End: April 13, 2024 PHYSICIAN NO FAMILY Primary Care Provider Active Start: April 13, 2024 End: April 13, 2024 Team Status: Inactive Member Role Status Dates Monet Dudley APRN NP-C Primary Care Provider, Attending Provider Active Start: April 25, 2024 End: April 25, 2024 Team Status: Inactive Member Role Status Dates Monet Dudley APRN [employer]-C Primary Care Provider, Attending Provider Active Start: May 25, 2024 End: May 25, 2024 Neck Pinner Relationship Specialty Start Date End Date David Castelan MD [address] [place] [address] [phone] PCP - General Internal Medicine 08/17/24 Monet Dudley NP [address] [place] [id number] Referring Physician Family Medicine 04/26/24 Neck Pinner Relationship Specialty Start Date End Date David Castelan MD [address] [place] [address] [phone] PCP - General Internal Medicine 08/17/24 Monet Dudley NP [address] [place] [id number] Referring Physician Family Medicine 04/26/24 Neck Pinner Relationship Specialty Start Date End Date David Castelan MD [address] [place] [address] [phone] PCP - General Internal Medicine 08/17/24 Monet Dudley NP [address] [place] [id number] Referring Physician Family Medicine 04/26/24 Goals (unrecognized section and content) Goals may be documented in a n alternate section Reason for Visit (unrecogniz ed section and content) Reason Comments Mastitis Audio 08/17/24 FOR RECORDS PERTAINING TO PATIENTS WHO ARE [...] BE BASED ON THE PRIMARY CLINICAL RECORDS. [email or web address] [facility]. provides no warranty or guarantee of the accuracy or completeness of information in this document.
[2024-09-04 12:57] VITALS: O2SAT 100
[2024-09-04 13:11] LABS: Internal Control Within Normal Limits; Strep A Antigen Screen Negative
[2024-09-04] MEDS: KETOROLAC TROMETHAMINE 30 MG/ML VIAL IM (13:13)
[2024-09-04] MEDS: lidocaine HCL 15 ML, MAG HYDROX/ALUMINUM HYD/SIMETH 30 ML, HYOSCYAMINE SULFATE 0.25 MG PO (13:13)
--- NOTE | 2024-09-04 13:50 | ED_ITS ---
HPI HPI - General Adult General Chief complaint: Upper Respiratory Infection Stated complaint: KNOT IN THROAT Time Seen by Provider: 09/04/24 12:52 Source: patient Mode of arrival: walk-in Limitations: no limitations History of Present Illness HPI narrative: The patient is a 59 years old female who is coming to the ER for the second time after she was yesterday evaluated in [facility] when she was there with symptoms of viral illness as the diagnosis, initially she did have some nausea and dizziness according to what she said started having some sore throat this morning, the patient did not take anything [id number] but she mentioned that it hurts to swallow The patient denies any other concern although she mentioned that she have a history of chronic lump in her neck although she was evaluated by ENT and they told her that she did not have any lump but she feel that it got worse after the sore throat today The patient denies any difficulty breathing Related Data Previous Rx's ?Medication ?Instructions ?Recorded ibuprofen 600 mg tablet 600 mg PO Q8H PRN pain #20 tabs 09/04/24 Allergies Allergy/AdvReac Type Severity Reaction Status Date / Time No Known Drug Allergies Allergy Verified 03/11/23 17:56 Opioid HPI Opioid Management Most Recent Opioid Data: Last Pain Scale 5 09/04/24 13:13 09/04/24 Last MAR Pain Assessment 09/04/24 13:13 Review of Systems ROS Status of ROS 10 or more systems reviewed and unremark able except as noted in history and below PFSH PFSH Social History Smoking status: Never smoker Little interest or pleasure in doing things: not at all Feeling down, depressed, or hopeless: not at all Exam Narrative Exam Narrative: Nurses notes and vital signs reviewed and patient is not hypoxic. General: Well-appearing and in no apparent distress. Skin: Warm, dry, no pallor noted. No rash. Head: Normocephalic, atraumatic. Neck: Supple, non-tender. Eye: Pupils are equal, round and EOMI. No scleral icterus. Ears, Nose, Mouth, and Throat: TM are clear, no nasal mucosal hypertrophy. Oral mucosa is moist, mild,, uvula is mid-line and the patient does not have any tenderness at the base of the mouth, no significant enlargement of the tonsils Cardiovascular: Regular Rate and Rhythm without murmur, gallop or rub. Respiratory: No accessory muscle use or respiratory distress. Lungs are clear to auscultation, no wheezing, rales or rhonchi Chest Wall: no tenderness Back: No midline thoracic or lumbar vertebral tenderness. No CVA tenderness Musculoskeletal: normal ROM, no calf or popliteal tenderness, no lower extremity edema/swelling GI: Abdomen is soft, non-distended. Normal bowel sounds. No masses appreciated. No tenderness to palpation. No rebound, guarding, or rigidity noted. Neurological: A&O x4. No cranial nerve dysfunction observed. Constitutional Vital Signs, click to edit/add: Last Vital Signs Temp 98.1 F 09/04/24 12:43 Pulse 107 H 09/04/24 12:43 Resp 18 09/04/24 12:43 BP 166/93 H 09/04/24 12:43 Pulse Ox 100 09/04/24 12:57 O2 Del Method Room Air 09/04/24 12:57 Course Vital Signs Vital signs: Vital Signs Temperature 98.1 F 09/04/24 12:43 Pulse Rate 107 H 09/04/24 12:43 Respiratory Rate 18 09/04/24 12:43 Blood Pressure 166/93 H 09/04/24 12:43 Pulse Oximetry 98 09/04/24 12:43 Oxygen Delivery Method Room Air 09/04/24 12:43 Temperature 98.1 F 09/04/24 12:43 Pulse Rate 107 H 09/04/24 12:43 Respiratory Rate 18 09/04/24 12:43 Blood Pressure 166/93 H 09/04/24 12:43 Pulse Oximetry 100 09/04/24 12:57 Oxygen Delivery Method Room Air 09/04/24 12:57 Medical Decision Making [facility] Narrative Medical decision making narrative: The patient bedside evaluation did not show any difficulty breathing or any compromise of the airway, the patient did not have any neck pain as well she had a full range of movement preserved, the patient was feeling much better after being treated with GI cocktail Although she did had some nausea with that and vomited once But she was feeling much better after the GI cocktail she also was treated with Toradol strep test is negative Right now her presentation is mostly secondary to viral illness she was discharged with ibuprofen high-dose as supportive care in addition to warm liquids The patient is to follow up with primary care physician in next 2-3 days or to return to the emergency department should any of the signs or symptoms worsen or new symptoms develop. The patient agrees with the following Diagnosis and Treatment plan and the patient will be discharged home. Lab Data Labs: Lab Results 09/04/24 Range/Units 12:46 Streptococcus Screen Negative Discharge Plan Discharge Chief Complaint: Upper Respiratory Infection Clinical Impression: Pharyngitis Patient Disposition: Home, Self-Care Time of Disposition Decision: 14:00 Condition: Good Prescriptions / Home Meds: New ibuprofen 600 mg tablet 600 mg PO Q8H PRN (Reason: pain) Qty: 20 0RF Print Language: Romansh Instructions: Pharyngitis (ED), Upper Respiratory Infection (DC) Referrals: GUSTAVO REVELES [Primary Care Provider] - 1 week
== END 2024-09-04 14:05 | disposition home or self-care (01) ==
PROVIDERS: Emergency Provider Emergency Medicine; PCP Nurse Practitioner Family
DX: J02.9 Acute pharyngitis, unspecified (principal)
CPT/HCPCS: 87070; 87880; 96372; 99284; J1885

== ENCOUNTER 2024-09-15 14:12 | Outpatient (OUT) | payer BC, SELFPAY ==
--- NOTE | 2024-09-15 14:17 | MR_ITS ---
The [address] [address] Patient Name: BETTY VALDES MRN: [id number] date: 1965 Sex: F Assigned Patient Location: MRI Current Patient Location: MRI Accession/Order Number: [id number] Exam Date: 09/15/2024 23:28 Report Date: 09/15/2024 23:37 At the request of: XUAN BULLARD MD Procedure: MR head/brain wo/w con MRI BRAIN WITHOUT AND WITH INTRAVENOUS CONTRAST CLINICAL DATA: Asymmetric sensorineural hearing loss COMPARISON: CT head 02/19/2024 FINDINGS: No restricted diffusion. Ventricles and sulci normal size and configuration for the patient's age. No shift of midline structure. Basal cisterns are patent. Minimal scattered punctate T2 signal identified within the periventricular subcortical white matter. No shift of midline structure. Basal cisterns are patent. Major intracranial arterial vascular flow voids are preserved. Mild ethmoid sinus and maxillary sinus mucosal thickening. Polypoid changes left maxillary sinus noted. Minimal left mastoid effusion. Intrinsic T2 signal within the inner ear structures is maintained. Unremarkable appearance of the cisternal segments of the 7th and 8th cranial nerves on the provided images. No abnormal retrocochlear enhancement. No abnormal enhancement identified elsewhere within brain. MR/MR head/brain wo/w con IMPRESSION: Negative for abnormal retrocochlear enhancement. Minimal chronic small vessel ischemic disease Minimal left mastoid effusion. Otherwise essentially unremarkable MRI of the brain and IACs. Impression dictated by: Holland Delatorre M.D. 09/15/2024 11:37 PM Dictation Location: [place] [address] Electronically authenticated by: [id number] Y Date: 09/15/2024 23:37
[2024-09-15 15:25] LABS: Estimated GFR (African America >60 (>=60 mL/min/1.73m^2); Estimated GFR (Non-African Ame >60 (>=60 mL/min/1.73m^2)
== END 2024-09-15 14:13 | disposition home or self-care (01) ==
LOC: MRI 14:12
PROVIDERS: Pathology Anatomic Pathology & Clinical Pathology; PCP Nurse Practitioner Family; Visit Provider Otolaryngology
DX: H90.3 Sensorineural hearing loss, bilateral (principal)
CPT/HCPCS: 36415; 70553; 82565; A9575